=== PATIENT | female | born 1965 | race Caucasian/White ===

== ENCOUNTER 2023-10-27 11:34 | Day surgery (SDC) | payer MEDICARE, MEDICAID, SELFPAY ==
[2023-10-25 12:50] VITALS: BMI 50.3
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
[2023-10-27] VITALS (9 sets, daily range): BP systolic 112–156; BP diastolic 65–93; PULSE 60–68; RESP 16–20; TEMP 36.1–36.9; O2SAT 93–97
[2023-10-27 12:30] LABS: Glucose, Whole Blood 91 mg/dL (60-115)
[2023-10-27] MEDS: Lactated Ringers 1,000 ML 100 ML IVCONT (13:00)
--- NOTE | 2023-10-27 15:45 | P.OPHTHAL_ITS ---
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 Procedures 1. Recession of left lateral rectus muscle 9 mm. 2. Resection of left medial rectus muscle [address] Judge. Anesthesia general. Complications none. The patient was brought to the operative room placed under general anesthesia. The left eye was prepped and draped in the usual sterile ophthalmic fashion. A lid speculum was placed in the left eye and a peritomy was created around the lateral rectus muscle. The muscle was hooked and secured with a double-armed Vicryl suture. It was then disinserted from the globe and reattached to a position 9 mm behind the original insertion. A peritomy was then created around the medial rectus muscle which was dissected free of its overlying fascial attachments. It was hooked and placed on a [place] muscle clamp. A 10 mm resection was marked off with cautery and the resection point secured with a double-armed Vicryl suture. The distal muscle was resected and the resection point drawn forward to the original insertion. Conjunctiva was closed with interrupted Vicryl sutures. The patient was then awoken from general anesthesia and discharged to postoperative recovery in good condition.
== END 2023-10-27 17:15 | disposition home or self-care (01) ==
PROVIDERS: PCP Internal Medicine; Visit Provider Ophthalmology
PROC: (CPT 67312; principal; 2023-10-27 13:40)
DX: H49.02 Third [oculomotor] nerve palsy, left eye (principal); G40.909 Epilepsy, unspecified, not intractable, without status epilepticus; G20.A1 Parkinson's disease without dyskinesia, without mention of fluctuations; D68.59 Other primary thrombophilia; I10 Essential (primary) hypertension; E11.9 Type 2 diabetes mellitus without complications; G47.33 Obstructive sleep apnea (adult) (pediatric); J45.40 Moderate persistent asthma, uncomplicated; Z79.51 Long term (current) use of inhaled steroids; Z79.01 Long term (current) use of anticoagulants; Z79.85 Long-term (current) use of injectable non-insulin antidiabetic drugs; Z86.73 Personal history of transient ischemic attack (TIA), and cerebral infarction without residual deficits; Z87.891 Personal history of nicotine dependence; Z79.899 Other long term (current) drug therapy
CPT/HCPCS: 67312; 82947; J0131; J0360; J1596; J2250; J2704; J3010